=== PATIENT | female | born 2005 | race Two or more races ===

== ENCOUNTER 2025-06-06 12:11 | Emergency (ER) | payer BC, MEDICAID ==
[~2025-06-06] VITALS: Ht 160 cm; Wt 62.7 kg
[2025-06-06] MEDS: SODIUM CHLORIDE 0.9% 500 ML IV ONE (13:19)
--- NOTE | 2025-06-06 13:19 | ED.PDOC ---
SOB-HPI HPI Comments 20-year-old female that presents to the ED a chief complaint of flu-like s ymptoms. The patient states she has been having headache abdominal pain generalized weakness body aches nausea fever for the past two days. Patient states her temperature was 102 F and states she took Tylenol but states it has not been helping. Patient otherwise denies any sick contacts or recent changes to diet or recent travel. Patient otherwise denies any other symptoms. 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 Family History Family History: Reviewed,noncontributory to illness Social History Smoker: Non-Smoker Alcohol: Denies ETOH Use Drugs: Denies Drug Use Lives In: Home Constitutional: reports: fatigue, fever, weakness; denies: chills, diaphoresis, malaise, sweats, others EENTM: denies: blurred vision, double vision, ear bleeding, ear discharge, ear drainage, ear pain, ear ringing, eye pain, eye redness, hearing loss, mouth pain, mouth swelling, nasal discharge, nose bleeding, nose congestion, nose pain, photophobia, tearing, throat pain, throat swelling, voice changes, others Respiratory: denies: cough, hemoptysis, orthopnea, SOB at rest, shortness of breath, SOB with excertion, stridor, wheezing, others Cardiovascular: denies: chest pain, dizzy spells, diaphoresis, Dyspnea on exertion, edema, irregular heart beat, left arm pain, lightheadedness, palpitations, PND, syncope, others Gastrointestinal: denies: abdomen distended, abdominal pain, blood streaked bowels, constipated, diarrhea, dysphagia, difficulty swallowing, hematemesis, melena, nausea, poor appetite, poor fluid intake, rectal bleeding, rectal pain, vomiting, others Genitourinary: denies: abnormal vagina bleeding, burning, dyspareunia, dysuria, flank pain, frequency, hematuria, incontinence, pain, , vagina discharge, urgency, others Neurological: reports: headache; denies: dizziness, fainting, left sided numbness, left sided weakness, numbness, paresthesia, pre-existing deficit, right sided numbness, right sided weakness, seizure, speech problems, tingling, tremors, weakness, others Musculoskeletal: denies: back pain, gout, joint pain, joint swelling, muscle pain, muscle stiffness, neck pain, others Integumetry: denies: bruises, change in color, change in hair/nails, dryness, laceration, lesions, lumps, rash, wounds, others Allergic/Immunocompromised: denies: Difficulty Healing, Frequent Infections, Hives, Itching, others Hematologic/Lymphatic: denies: anemia, blood clots, easy bleeding, easy bruising, swollen glands, others Endocrine: denies: excessive hunger, excessive sweating, excessive thirst, excessive urination, flushing, intolerance to cold, intolerance to heat, unexplained weight gain, unexplained weight loss, others Psychiatric: denies: anxiety, bipolar disorder, depression, hopeless, panic disorder, schizophrenia, sleepless, suicidal, others All Other Systems: Reviewed and Negative Physical Exam General Appearance: No Apparent Distress, Normal HEENT: Normal ENT Inspection, Pharynx Normal, TMs Normal Neck: Full Range of Motion, Non-Tender, Normal, Normal Inspection Respiratory: Chest Non-Tender, Lungs Clear, No Accessory Muscle Use, No Respiratory Distress, Normal Breath Sounds Cardiovascular: No Edema, No JVD, No Murmur, No Gallop, Normal Peripheral Pulses, Regular Rate/Rhythm Breast Exam: Deferred Gastrointestinal: No Organomegaly, Non Tender, No Pulsatile Mass, Normal Bowel Sounds, Soft, Other (CVA tenderness negative bilaterally) Genitalia: Deferred Pelvic: Deferred Rectal: Deferred Extremities: No calf tenderness, Normal capillary refill, Normal inspection, Normal range of motion, Non-tender, No pedal edema Musculoskeletal : Apperance: Normal Neurologic: Alert, photographic spotter II-XII nml as Tested, No Motor Deficits, Normal Affect, Normal Mood, No Sensory Deficits Cerebellar Function: Normal Reflexes: Normal Skin: Dry, Normal Color, Warm Lymphatic: No Adenopathy Was a procedure done? Was a procedure done?: No Differential Dx Differential Diagnosis: Asthma, Bronchitis, Pneumonia, URI Comments Influenza a and B, COVID, viral syndrome, UTI X-Ray, Labs, Meds, VS Vital Signs Date Time Temp Pulse Resp B/P (MAP) Pulse Ox O2 Delivery O2 Flow Rate FiO2 06/06/25 16:00 98.2 89 16 132/89 (103) 98 98.2 06/06/25 14:12 98.4 125 18 108/66 (80) 100 98.4 06/06/25 14:12 125 18 100 Room Air 06/06/25 14:12 98.4 06/06/25 13:21 99.2 06/06/25 12:26 99.7 104 16 104/71 99 99.7 Lab Test 06/06/25 13:57 06/06/25 13:27 06/06/25 13:01 Range/Units Urine Color Light-orange Yellow Urine Clarity Turbid H Clear Urine pH 6.0 5.0-9.0 Urine Specific [place] 1.010 1.001-1.035 Urine Protein 1+ H Negative Urine Ketones Negative Negative Urine Blood 2+ H Negative /uL Urine Nitrite 2+ H Negative Urine Bilirubin Negative Negative Urine Urobilinogen Normal Negative mg/dL Urine Leukocyte Esterase 3+ Negative /uL Urine RBC 11 0 - 4 /hpf Urine WBC Clumps Present None Seen /hpf Urine Microscopic WBC 810 H 0-5 /HPF Urine Squamous Epithelial Cells Few <5 /hpf Urine Bacteria None seen None Seen /hpf Urine Glucose Normal Normal mg/dL Urine Test Negative Negative Influenza Type A Antigen Negative Negative Influenza Type B Antigen Negative Negative SARS-CoV-2 Antigen (Rapid) Negative NEGATIVE White Blood Count 12.0 H 4.4-10.8 10^3/uL Red Blood Count 4.69 4.0-5.20 10^6/uL Hemoglobin 13.8 12.2-16.2 g/dL Hematocrit 41.3 36.0-46.0 % Mean Corpuscular Volume 88.1 80.0-100.0 fL Mean Corpuscular Hemoglobin 29.4 28.0-32.0 pg Mean Corpuscular Hemoglobin Concent 33.3 32.0-36.0 g/dL Red Cell Distribution Width 13.3 11.8-14.3 % Platelet Count 284 140-450 10^3/uL Mean Platelet Volume 7.9 6.9-10.8 fL Neutrophils (%) (Auto) 74.2 37.0-80.0 % Lymphocytes (%) (Auto) 15.0 10.0-50.0 % Monocytes (%) (Auto) 10.1 0.0-12.0 % Eosinophils (%) (Auto) 0.0 0.0-7.0 % Basophils (%) (Auto) 0.7 0.0-2.0 % Neutrophils # (Auto) 8.9 H 1.6-8.6 10 ^3/uL Lymphocytes # (Auto) 1.8 0.4-5.4 10 ^3/uL Monocytes # (Auto) 1.2 0-1.3 10 ^3/uL Eosinophils # (Auto) 0 0-0.8 10 ^3/uL Basophils # (Auto) 0.1 0-0.2 10 ^3/uL Nucleated Red Blood Cells 0.1 % Sodium Level 140 136-145 mmol/L Potassium Level 3.8 3.5-5.1 mmol/L Chloride Level 103 98-107 mmol/L Carbon Dioxide Level 27 20-31 mmol/L Anion Gap 10 5-15 Blood Urea Nitrogen 6 L 9-23 mg/dL Creatinine 0.86 0.550-1.02 mg/dL Glomerular Filtration Rate Calc 99 >90 mL/min BUN/Creatinine Ratio 7.0 L 10.0-20.0 Serum Glucose 110 H 74-106 mg/dL Calcium Level 8.9 8.7-10.4 mg/dL Total Bilirubin 0.7 0.2-1.0 mg/dL Aspartate Amino Transferase (AST) 10 L 13-40 U/L Alanine Aminotransferase (ALT) 64 H 7-40 U/L Alkaline Phosphatase 63 46-116 U/L Total Protein 6.7 5.7-8.2 g/dL Albumin 4.1 3.2-4.8 g/dL Lipase 33 12-53 U/L X-Ray, Labs, Meds, VS Comment Patient arrives alert and oriented, ABC's intact, afebrile, vital signs stable, saturating well in room air Peripheral IV insertion+ labs were ordered. CBC was ordered to exclude anemia, blood loss, or infection. CMP was ordered to exclude electrolyte abnormalities, renal failure, dehydration, hyperglycemia and/or liver enzyme abnormalities. Urinalysis was ordered to rule out UTI or hematuria. History and lab findings consistent with UTI Vital signs stable patient stable Patient tolerating p.o. fluids Encouraged parents to increase water intake Practice good personal hygiene. Always wipe from front to back Drink plenty of fluids to help flush bacteria out of the urinary tract Empty bladder completely as soon as you feel the urge Empty bladder after intercourse Prescribed p.o. antibiotics for presentation of symptoms Complete course of antibiotic therapy even if symptoms improve or resolve. There should be no leftover antibiotics as this can lead to antibiotic resistant bacteria and even worse infection. Parents verbalized understanding. Potential side effects discussed with patient including abdominal pain, nausea, diarrhea. Recommended probiotics and return precautions given Persistent diarrhea Dehydration Blood in stool Ill-appearing On reevaluation, patient had symptomatic improvement. Patient is stable for discharge at this time. External notes reviewed. Test results and diagnostic imaging interpreted. All diagnostic findings, discharge care, education and instructions provided Follow-up with PCP in 2 to 3 days Patient verbalized understanding and agreed to treatment plan Vital signs stable, afebrile, no acute distress noted Patient ambulatory with strong steady gait Advised to return precautions for any new or worsening symptoms, return to ER immediately for re-evaluation Patient is aware that the purpose of this visit was for an acute medical emergency requiring emergent stabilization. Chronic conditions, including malignancies have not been ruled out. Patient is instructed to follow up with PCP as directed and discharge instructions for continued care and workup. If unable to arrange follow-up, patient is to return to the emergency department for reassessment. Patient (parent or legal guardian if applicable) was given verbal and written discharge instructions and acknowledges understanding. Time of 1ST Reevaluation: 13:45 Reevaluation 1ST: Improved Patient Education/Counseling: Diagnosis, Treatment Family Education/Counseling: No Family Present SEPSIS Sepsis Screen Date sepsis recognized/suspect: Jun 06, 2025 Time Sepsis recognized/suspect: 1226 Recent Procedure: No On Antibiotic Therapy: No Respiratory Rate >20: No Heart Rate >90: Yes Temp<36 C (96.8 F) or >38.3 C: No SBP <90 or MAP <65 mmHG: No New Acute Mental Status Change: No Is the patient on CPAP, BIPAP,: No Physician Orders Heplock Iv (06/06/25 12:49) Vital Signs Date Time Temp Pulse Resp B/P (MAP) Pulse Ox O2 Delivery O2 Flow Rate FiO2 06/06/25 16:00 98.2 89 16 132/89 (103) 98 98.2 06/06/25 14:12 98.4 125 18 108/66 (80) 100 98.4 06/06/25 14:12 125 18 100 Room Air 06/06/25 14:12 98.4 06/06/25 13:21 99.2 06/06/25 12:26 99.7 104 16 104/71 99 99.7 Laboratory Tests Test 06/06/25 13:01 White Blood Count 12.0 10^3/uL (4.4-10.8) H Departure 1 Departure Time of Disposition: 15:45 Impression: Primary Impression: UTI (urinary tract infection) Qualified Codes: N30.00 - Acute cystitis without hematuria Disposition: HOME / SELF CARE / HOMELESS Condition: Fair Additional Instructions: Discharge Note: Continue on your medications. Do not drive when taking narcotics. Drink plenty of fluids. Follow up with your primary Dr. Take your prescriptions as ordered. If your condition becomes worse call and follow up with your primary Dr. for instructions or return to the ER if needed. Thank you for visiting [facility]. e-Prescriptions Ibuprofen Micronized (Ibuprofen) 800 Mg Tab 800 MG PO TIDWMEALS for 7 Days, #21 TAB 0 Refills Prov: LOLA ABDI NP 06/06/25 Nitrofurantoin Monohydrate Mac (Macrobid) 100 Mg Cap 100 MG PO BID for 5 Days, #10 CAP 0 Refills Prov: LOLA ABDI PATIENT INTAKE COORDINATOR 06/06/25 Critical Care Note Critical Care Time?: No Stability Stability form required: No Heart Score Heart Score: Heart Score Response (Comments) Value History N/A 0 EKG N/A 0 Age N/A 0 Risk Factors N/A 0 Troponin N/A 0 Total 0 I personally scribed for LOLA ABDI NP ([email or web address]) on 06/06/25 at 13:19. Electronically submitted by Maurice Chiang ([email or web address]). LOLA ABDI NP Jun 06, 2025 13:19
[2025-06-06] MEDS: ACETAMINOPHEN 500 MG TAB or CAP PO ONE (13:21)
[2025-06-06 13:24] LABS: Hematocrit 41.3 % (36.0-46.0); Hemoglobin 13.8 g/dL (12.2-16.2); Mean Corpuscular Hemoglobin 29.4 pg (28.0-32.0); Mean Corpuscular Volume 88.1 fL (80.0-100.0); Nucleated Red Blood Cells % 0.1 %
[2025-06-06] MEDS: ONDANSETRON HCL 4 MG/2 ML VIAL IV ONE (13:26)
[2025-06-06 13:37] LABS: Alanine Aminotransferase 64 U/L (7-40); Albumin 4.1 g/dL (3.2-4.8); Alkaline Phosphatase 63 U/L (46-116); Anion Gap 10 (5-15); BUN/Creatinine Ratio 7.0 (10.0-20.0); Bilirubin, Total 0.7 mg/dL (0.2-1.0); Blood Urea Nitrogen 6 mg/dL (9-23); Calcium 8.9 mg/dL (8.7-10.4); Carbon Dioxide 27 mmol/L (20-31); Chloride 103 mmol/L (98-107); Glucose 110 mg/dL (74-106); Lipase 33 U/L (12-53); Potassium 3.8 mmol/L (3.5-5.1); Sodium 140 mmol/L (136-145); Total Protein 6.7 g/dL (5.7-8.2)
[2025-06-06 13:54] LABS: COVID19 ANTIGEN SOFIA FIA NEGATIVE (NEGATIVE)
[2025-06-06 14:24] LABS: Urine Protein, UAD 1+ (Negative); Urine WBC Clumps PRESENT /hpf (None Seen)
[2025-06-06] MEDS ORDERED: IBUP-1455 PO (15:24)
[2025-06-06] MEDS ORDERED: NITR-87 PO (15:24)
[2025-06-06 16:00] VITALS: BP 132/89; PULSE 89; RESP 16; TEMP 98.2; O2SAT 98
== END 2025-06-06 16:02 | disposition home or self-care (01) ==
LOC: EDBD 12:11 → ER 12:11
DX: N39.0 Urinary tract infection, site not specified (principal); R51.9 Headache, unspecified; R50.9 Fever, unspecified; Z20.822 Contact with and (suspected) exposure to COVID-19
CPT/HCPCS: 36415; 80053; 81001; 81025; 83690; 85025; 87426; 87804; 96361; 96365; 96375; 99284; J0696; J2405; J7040